=== PATIENT | male | born 1995 | race Caucasian/White ===

== ENCOUNTER 2016-12-06 08:30 | Emergency (ER) | payer SELFPAY ==
[~2016-12-06] VITALS: Ht 193 cm; Wt 129.0 kg
[~2016-12-06 08:30] MED LIST: ASPI81 PO; ATEN1TAB73 PO
[2016-12-06 08:32] VITALS: BP 147/95; PULSE 105; RESP 20; TEMP 97.9; O2SAT 99
--- NOTE | 2016-12-06 08:45 | PD ---
HPI Chief Complaint: Edema Time Seen by Provider: 08:42 Travel History International Travel<30 days: No Contact w/Intl Traveler<30days: No Traveled to known affect area: No History of Present Illness HPI 21-year-old male with history of aortic valve stenosis status post valve repair 5 years ago, presents to the ER today because he states that he has had 2-3 days history of bilateral leg swelling that started on its own. He denies any recent long trips. He denies any previous history. He denies any chest pains, shortness of breath, or any other symptoms. Modifying Factors: None Associated Signs & Symptoms: Bilateral leg swelling Risk Factors: None PFSH Past Medical History Hx Anticoagulant Therapy: No Cardiovascular Problems: Yes (aortic valve stenosis/ open heart sx) Chemotherapy: No Cerebrovascular Accident: No Diabetes: No Diminished Hearing: No Hypertension: Yes Respiratory: No Immunizations Current: Yes Past Surgical History Cardiac Surgery: Yes (AORTIC VALVE STENOSIS AND TEODORA AND OPEN HEART SURGERY TO REMOVE SCAR AORTIC) Hysterectomy: No Valve Replacement: Yes (AORTIC VALVE STENOSIS SURGERY 2005) Other Surgery: Yes (EXPLORATORY "TEODORA" SX DONE IN 2007) Social History Alcohol Use: No Tobacco Use: No Substance Use: No Allergies-Medications (Allergen,Severity, Reaction): Coded Allergies: No Known Allergies (Unverified , 03/25/15) Reported Meds & Prescriptions Reported Meds & Active Scripts Active No Active Prescriptions or Reported Medications Review of Systems Except as stated in HPI: all other systems reviewed are Neg Physical Exam Narrative GENERAL: Well-developed young white male patient currently not in acute distress. Awake and oriented 3. SKIN: Focused skin assessment warm/dry. HEAD: Atraumatic. Normocephalic. EYES: Pupils equal and round. No scleral icterus. No injection or drainage. ENT: No nasal bleeding or discharge. Mucous membranes pink and moist. NECK: Trachea midline. No JVD. CARDIOVASCULAR: Regular rate and rhythm. No murmur appreciated. RESPIRATORY: No accessory muscle use. Clear to auscultation. Breath sounds equal bilaterally. GASTROINTESTINAL: Abdomen soft, non-tender, nondistended. Hepatic and splenic margins not palpable. MUSCULOSKELETAL: No obvious deformities. No clubbing. No cyanosis. EXTREMITIES: No clubbing, cyanosis, but there is notable bilateral trace pitting edema the legs. No joint tenderness, effusion, or edema noted. No calf tenderness. NEUROLOGICAL: Awake and alert. No obvious cranial nerve deficits. Motor grossly within normal limits. Normal speech. PSYCHIATRIC: Appropriate mood and affect; insight and judgment normal. Data Data Last Documented VS Vital Signs Date Time Temp Pulse Resp B/P Pulse Ox O2 Delivery O2 Flow Rate FiO2 12/06/16 08:32 97.9 105 20 147/95 99 Room Air Orders Complete Blood Count With Diff (12/06/16 08:42) Basic Metabolic Panel (Bmp) (12/06/16 08:42) Prothrombin Time / Inr (Pt) (12/06/16 08:42) Act Partial Throm Time (Ptt) (12/06/16 08:42) Us Leg Venous Doppler Bilat (12/06/16 08:42) B-Type Natriuretic Peptide (12/06/16 08:46) Labs Laboratory Tests Test 12/06/16 08:45 White Blood Count 8.8 TH/MM3 Red Blood Count 5.25 MIL/MM3 Hemoglobin 14.6 GM/DL Hematocrit 43.3 % Mean Corpuscular Volume 82.5 FL Mean Corpuscular Hemoglobin 27.8 PG Mean Corpuscular Hemoglobin 33.7 % Concent Red Cell Distribution Width 14.2 % Platelet Count 211 TH/MM3 Mean Platelet Volume 8.3 FL Neutrophils (%) (Auto) 64.9 % Lymphocytes (%) (Auto) 25.7 % Monocytes (%) (Auto) 7.8 % Eosinophils (%) (Auto) 1.2 % Basophils (%) (Auto) 0.4 % Neutrophils # (Auto) 5.7 TH/MM3 Lymphocytes # (Auto) 2.2 TH/MM3 Monocytes # (Auto) 0.7 TH/MM3 Eosinophils # (Auto) 0.1 TH/MM3 Basophils # (Auto) 0.0 TH/MM3 CBC Comment DIFF FINAL Differential Comment Prothrombin Time 10.7 SEC Prothromb Time International 1.0 RATIO Ratio Activated Partial 25.4 SEC Thromboplast Time Sodium Level 141 MEQ/L Potassium Level 3.8 MEQ/L Chloride Level 104 MEQ/L Carbon Dioxide Level 28.7 MEQ/L Anion Gap 8 MEQ/L Blood Urea Nitrogen 8 MG/DL Creatinine 1.30 MG/DL Estimat Glomerular Filtration 70 ML/MIN Rate Random Glucose 81 MG/DL Calcium Level 9.1 MG/DL B-Type Natriuretic Peptide 49 PG/ML MDM Medical Decision Making Medical Screen Exam Complete: Yes Emergency Medical Condition: Yes Medical Record Reviewed: Yes Interpretation(s) Laboratory Tests Test 12/06/16 08:45 Estimat Glomerular Filtration 70 ML/MIN (>89) Rate Differential Diagnosis Bilateral leg edemadependent edema versus renal failure versus CHF versus DVT Narrative Course Ultrasound did not show any signs of DVT. Lab work is unremarkable for significant renal issues or metabolic issues. At this point, I suspect a dependent edema and my plan would be to give him Lasix temporarily and have him follow-up with primary care physician. Keep leg sprays when sitting or laying down. Return for any worsening in symptoms as needed. The plan has been discussed with the patient and he states understanding. Diagnosis Primary Impression: Leg edema Med/Other Pt SpecificInfo: Prescription(s) given Scripts Furosemide (Lasix)20 Mg Tab20 Mg PO DAILY #14 TAB Ref 0 Prov:Lorena Mitchell MD 12/06/16 Disposition: 01 DISCHARGE HOME Condition: Stable Lorena Mitchell MD December 06, 2016 08:45
[2016-12-06 09:08] LABS: APTT (PATIENT) 25.4 SEC (24.3-30.1); PROTHROMBIN TIME - PATIENT 10.7 SEC (9.8-11.6)
[2016-12-06 09:10] LABS: AUTOMATED NEUTROPHIL # 5.7 TH/MM3 (1.8-7.7); BASOPHIL % 0.4 % (0.0-2.0); EOSINOPHIL # 0.1 TH/MM3 (0-0.4); EOSINOPHIL % 1.2 % (0.0-4.0); HEMATOCRIT 43.3 % (39.0-51.0); HEMO FLAGS DIFF FINAL; LYMPH % 25.7 % (9.0-44.0); LYMPHOCYTE # 2.2 TH/MM3 (1.0-4.8); MEAN CELL VOLUME 82.5 FL (80.0-100.0); MEAN CORPUSCULAR HEMOGLOBIN 27.8 PG (27.0-34.0); MEAN CORPUSCULAR HGB CONC 33.7 % (32.0-36.0); MONO % 7.8 % (0.0-8.0); NEUT % 64.9 % (16.0-70.0); PLATELET COUNT 211 TH/MM3 (150-450); RED BLOOD COUNT 5.25 MIL/MM3 (4.50-5.90); RED CELL DISTRIBUTION WIDTH 14.2 % (11.6-17.2); WHITE BLOOD COUNT 8.8 TH/MM3 (4.0-11.0)
[2016-12-06 09:22] LABS: BICARBONATE 28.7 MEQ/L (21.0-32.0); POTASSIUM 3.8 MEQ/L (3.5-5.1)
--- NOTE | 2016-12-06 10:36 | RADRPT ---
EXAM DATE/TIME: 12/06/2016 09:21 [facility] COMPARISON: No previous studies available for comparison. INDICATIONS : Bilateral leg swelling. MEDICAL HISTORY : Hypertension. Aortic valve stenosis. SURGICAL HISTORY : Aortic valve replacement. ENCOUNTER: Initial ACUITY: 3 days PAIN SCORE: 4/10 LOCATION: Bilateral leg. TECHNIQUE: Venous ultrasound of the left and right leg was performed from the inguinal ligament to the proximal calf. Real-time, color Doppler and spectral tracing, compression and augmentation techniques were us ed. FINDINGS: RIGHT LEG: There is normal compressibility of the deep venous system from the inguinal region to the proximal ca lf. No echogenic clot is seen in the lumen of the common femoral, femoral, popliteal, and posterior tibial veins. There is a normal response of the venous system to proximal and distal augmentation an d respiration. LEFT LEG: There is normal compressibility of the deep venous system from the inguinal region to the proximal ca lf. No echogenic clot is seen in the lumen of the common femoral, femoral, popliteal, and posterior tibial veins. There is a normal response of the venous system to proximal and distal augmentation an d respiration. CONCLUSION: Normal examination. Isma Sanchez MD on December 06, 2016 at 10:34 Board Certified Radiologist. This report was verified electronically.
[2016-12-06] MEDS ORDERED: FURO1TAB62 PO (10:42)
== END 2016-12-06 11:25 | disposition home or self-care (01) ==
LOC: NEPE 08:30
DX: R60.0 Localized edema (principal); I35.0 Nonrheumatic aortic (valve) stenosis; I10 Essential (primary) hypertension
CPT/HCPCS: 80048; 83880; 85025; 85610; 85730; 93970; 99284